=== PATIENT | male | born 1930 | race Caucasian/White ===

== ENCOUNTER 2018-11-16 19:05 | Inpatient (IN) ==
[2018-11-16 20:03] LABS: BASO# 0.02 X1000 (0.0-0.2); BASO% 0.2 % (0.0-0.8); HEMATOCRIT 49.3 % (42.0-52.0); HEMOGLOBIN 15.5 g/dL (14.0-18.0); IMM GRAN# 0.04 X1000 (0.0-0.04); IMM GRAN% 0.4 % (0.0-0.5); LYMPH# 0.46 X1000 (1.2-3.4); MCH 29.8 PG (27-31); MCHC 31.4 g/dL (33-37); MCV 94.8 FL (81-99); MONO# 0.84 X1000 (0.11-0.59); MONO% 9.2 % (1.7-9.3); MPV 10.8 FL (7.4-10.4); NEUT# 7.78 X1000 (1.4-6.5); NEUT% 85.2 % (42.2-75.2); PLT 210 X1000 (130-400); RDW 15.5 % (11.5-14.5); WBC 9.14 X1000 (4.8-10.8)
--- NOTE | 2018-11-16 20:26 | Diag Imaging Result Doc PS360 ---
EXAM: CT HEAD W/O CONTRAST INDICATION: fall, head trauma TECHNIQUE: This exam was performed using automated exposure control, adjustment of mA or kV according to patient size, and/or use of iterative reconstruction technique. COMPARISON: None. FINDINGS: The ventricles are enlarged indicating significant central atrophy versus normal pressure hydrocephalus. There is suggestion of moderate white matter microangiopathy. There are a couple of chronic lacunar infarcts involving the left basal ganglion and one on the right. There is no definite acute infarct given the limited sensitivity of CT versus MRI. There is no discrete intracranial mass, mass effect, or intracranial hemorrhage. There is suggestion of mild anterior scalp edema. The calvaria is intact. IMPRESSION: Chronic appearing intracranial changes as described. No evidence of acute intracranial pathology. Electronically signed by Kamar Yañez 11/16/2018 8:24 PM
--- NOTE | 2018-11-16 20:30 | Diag Imaging Result Doc PS360 ---
EXAM: CHEST-1 VIEW INDICATION: sob TECHNIQUE: One view COMPARISON: 02/25/2011 FINDINGS: There is a patchy infiltrate throughout the left lung suggesting pneumonia, mainly in the left upper lobe. There is also mild interstitial thickening that is stable at both lung bases suggesting mild fibrotic change. There is no discrete pleural fluid collection or pneumothorax. The cardiomediastinal silhouette and central vasculature are grossly unremarkable. IMPRESSION: Patchy infiltrates throughout the left lung suggesting pneumonia. Electronically signed by Kamar Yañez 11/16/2018 8:28 PM
--- NOTE | 2018-11-16 20:31 | Diag Imaging Result Doc PS360 ---
EXAM: PELVIS INDICATION: fall TECHNIQUE: One view COMPARISON: None. FINDINGS: There is extensive degenerative arthropathy at the lower lumbar spine and at both acetabular roofs, more prominent on the right. There is no discrete fracture, dislocation, or significant intrinsic osseous lesion, otherwise. Surrounding soft tissues are grossly unremarkable by plain radiograph. IMPRESSION: Degenerative arthropathy but no evidence of acute osseous abnormality. Electronically signed by Kamar Yañez 11/16/2018 8:29 PM
[2018-11-16 20:59] LABS: ALB/GLOB RATIO 1.5; ALBUMIN 3.8 g/dL (3.5-5.0); CALCIUM 8.4 mg/dL (8.8-10.2); CREATININE 1.6 mg/dL (0.7-1.2); POTASSIUM 4.9 mmol/L (3.5-5.1); TOTAL BILIRUBIN 0.54 mg/dL (0.20-1.00); TOTAL PROTEIN 6.4 g/dL (6.3-8.3)
[2018-11-16] MEDS ORDERED: ZOSYN 3.375 GM in NS 50 ML IV ONE (21:39)
[2018-11-16] MEDS ORDERED: VANCOMYCIN 1 GM/NS 1 GM/250 ML IVPB IV ONE (21:39)
--- NOTE | 2018-11-16 21:47 | PROVIDER DOCUMENTATION ---
This chart was entered by Milly Alvarado Scribe, acting as scribe for Ryan Mcadams MD. HPI-General Adult - General Chief Complaint: Syncope Stated Complaint: fall/ams Time Seen by Provider: 11/16/18 19:11 Source: patient Unable to obtain history due to:: altered (hx of dementia, all info from EMS) - History of Present Illness -Gen Adult Nature of Presenting Problems: pt is a 88 yr old demented male presenting via EMS from SNF, per EMs pt was found in floor beside bed, its believed he fell out of bed. pt hx of dementia and unable to tell what happened. EMS reports pt baseline does talk but upon their arrival pt non verbal but follows commands. upon arrival here pt is now speaking and following commands, remains confused and unable tell events. EMS reported low SPo2 corrected enroute with high flow o2, no o2 in place on exam. Onset/Duration: reports: unsure Review of Systems - Adult - REVIEW OF SYSTEMS - ADULT ROS:: unobtainable per condition (dementia) Constitutional: reports: no symptoms reported Eyes: reports: no symptoms reported Ears, Nose, Mouth & Throat: reports: no symptoms reported Cardiovascular: reports: no symptoms reported Respiratory: reports: no symptoms reported Gastrointestinal: reports: no symptoms reported Genitourinary: reports: no symptoms reported Musculoskeletal: reports: no symptoms reported Integumentary: reports: no symptoms reported Neurological: reports: no symptoms reported Psychiatric: reports: no symptoms reported Endocrine: reports: no symptoms reported Hematologic/Lymphatic: reports: no symptoms reported Allergic/Immunologic: reports: no symptoms reported All Other Systems: Reviewed and Negative Past History - Adult - PAST MEDICAL HISTORY-ADULT Review of Records: reports: Old Records Reviewed, Nursing Assessment Review, Medications Reviewed, Social history reviewed & non-contributory. Major Childhood Illnesses: reports: denies history Cardiovascular: reports: denies history Respiratory: reports: denies history Gastrointestinal: reports: denies history Obstetrical/Gynecological: reports: denies history Genitourinary: reports: denies history Musculoskeletal: reports: denies history Neurological: reports: denies history Endocrine/Immune: reports: denies history Other Conditions: reports: denies history - IMMUNIZATION STATUS Childhood Immunizations: See Nurse Assessment Flu Vaccine: See Nurse Assessment - FAMILY HISTORY Family History: reviewed, not pertinent - SOCIAL HISTORY Living Situation: care facility Physical Exam-General - PHYSICAL EXAM-ADULT Initial Vital Signs Reviewed: Yes - CONSTITUTIONAL General Appearance: appears well, alert, no apparent distress - EYES Eyes: PERRL/EOMI - HEAD, EARS, NOSE, MOUTH & THROAT HENMT: normocephalic/atraumatic, moist mucous membranes, normal ENT inspection - NECK Neck: non-tender, full range of motion, supple, normal inspection - RESPIRATORY Respiratory: chest non-tender, lungs clear, normal breath sounds - CARDIOVASCULAR Cardiovascular: normal peripheral pulses, regular rate, rhythm, no edema - GASTROINTESTINAL (ABDOMEN) Abdominal Exam: normal bowel sounds, non tender, soft - LYMPHATIC Lymphatic: no adenopathy - MUSCULOSKELETAL Back Exam: normal inspection, no CVA tenderness, no vertebral tenderness Extremity: normal range of motion, non-tender, normal gait, normal inspection - SKIN Integumentary: normal color, normal turgor, warm/dry - NEUROLOGIC Neurologic: grossly normal, no motor/sensory deficits - PSYCHIATRIC Psych/Mental Status: other (demented) Progress - PLAN OF CARE/RESULTS Progress/Plan/Lab Results: Vital Signs - 8 hr 11/16/18 19:56 Temperature 98.7 F Pulse Rate 97 H Respiratory Rate 30 H Blood Pressure 112/70 O2 Sat by Pulse Oximetry 93 L Laboratory Results - last 24 hr 11/16/18 19:54 WBC 9.14 RBC 5.20 Hgb 15.5 Hct 49.3 MCV 94.8 MCH 29.8 MCHC 31.4 L RDW Std Deviation 15.5 H Plt Count 210 MPV 10.8 H Immature Gran % (Auto) 0.4 Neut % (Auto) 85.2 H Lymph % (Auto) 5.0 L Roane % (Auto) 9.2 Eos % (Auto) 0.0 Baso % (Auto) 0.2 Immature Gran # (Auto) 0.04 Neut # (Auto) 7.78 H Lymph # (Auto) 0.46 L Roane # (Auto) 0.84 H Eos # (Auto) 0.00 Baso # (Auto) 0.02 Orders Category Date Time Status CT HEAD W/O CONTRAST [CT] Stat Exams 11/16/18 19:18 Taken PELVIS [RAD] Stat Exams 11/16/18 19:20 Taken cxr [CHEST-1 VIEW] [RAD] Stat Exams 11/16/18 19:19 Taken CBC WITH ELECTRONIC DIFF [HEME] Stat Lab 11/16/18 19:54 Completed COMPREHENSIVE METABOLIC PANEL [CHEM] Stat Lab 11/16/18 19:54 Received PRO B-NATRIURETIC PEPTIDE Stat Lab 11/16/18 19:54 Received TROPONIN T Stat Lab 11/16/18 19:54 Received UA [URINALYSIS] [URINALYSIS] Stat Lab 11/16/18 19:17 Uncollected EKG [EKG] Stat Ther 11/16/18 19:20 Ordered Result Diagrams: 11/16/18 19:54 11/16/18 19:54 - EKG 1 Time of EKG reading by physician:: 19:40 EKG Read and Signed by:: Ryan Mcadams EKG Interpretation (*Must complete 3 of following elements*): Abnormal (t wave abnormality-consider inferior ischemia) Rate: 89 Rhythm: nsr Temple: normal QRS: normal NC Interval: normal Departure - Departure Date of Disposition Decision: 11/16/18 Time of Disposition Decision: 21:46 DIAGNOSIS: Pneumonia Qualifiers: Pneumonia type: due to unspecified organism Laterality: unspecified laterality Lung location: unspecified part of lung Qualified Code(s): J18.9 - Pneumonia, unspecified organism Disposition: ADMITTED INPATIENT 09 Certified Medical Emergency: Emergent Condition: Stable Referrals and Follow-Ups: Jesus Eric MD [Primary Care Provider] - - Critical Care Note This patient required my direct & personal management of CC.: No Attestation - Physician/ BLANCHE Attestation Patient care was provided by Advanced Practice Provider:: No The physician spent face to face time with patient:: Yes Advanced Practice Provider documentation review:: Supervising physician onsite and consulted in the evaluation and care of this patient. The physician did have a face to face encounter with the patient. This chart was documented by the indicated scribe, (Milly Alvarado Scribe) and accurately reflects the services I performed and decisions made by me, Ryan Mcadams MD, as attested by the provider's signature.
[2018-11-17] MEDS ORDERED: ZOFRAN IV PRN (00:38)
[2018-11-17] MEDS ORDERED: VANCOMYCIN IV PER PHARMACY MISC SCH (00:38)
[2018-11-17] MEDS ORDERED: TYLENOL PO PRN (00:38)
[2018-11-17] MEDS ORDERED: D5 1/2 NS 1,000 ML IV SCH (00:38)
[2018-11-17] MEDS ORDERED: HALDOL IM ONE (01:06)
[2018-11-17] MEDS: LOVENOX SUBQ SCH (01:47)
[2018-11-17] MEDS ORDERED: VANCOMYCIN 800 MG in NS 250 ML IV ONE (03:00)
--- NOTE | 2018-11-17 03:02 | HISTORY AND PHYSICAL ---
PRIMARY CARE PHYSICIAN: Fernando Eric MD. REASON FOR ADMISSION: Weakness and hypoxia today. HISTORY OF PRESENT ILLNESS: Mr. Dean Mancera is an 88-year-old man with past medical history of hypertension, prior CVA, and Parkinson's disease. Two days ago, he was noted to have a fever where he resides at an assisted living facility. Because there is an outbreak of some viral respiratory illness, he was quarantined with his . They thought maybe she had the flu. They also noticed at that time that he had a chest rattle according to his son yesterday. They were thinking of bringing him to his physician's office when they noticed that his fever defervesced and he looked to be doing well. This evening, the patient told his that he was very weak and wanted to go to bed. During the course of his sleeping in bed, he rolled out of bed and landed on the side of the bed and was found to be very weak and drowsy. The contacted his son who told her to call EMS and they came by and noticed his O2 saturation was 50% on room air. He was put on nonrebreather and he is now alert, awake and oriented to person and place. Oxygen saturation is in the mid 90s. The patient denies any cough or shortness of breath oddly enough. He denies any leg swelling, PND, orthopnea. No fever or chills today. No GI or complaints, although according to his son, he does have moments when he has urinary incontinence secondary to urge incontinence. REVIEW OF SYSTEMS: A 12-system review was done. Positive findings as per HPI. ALLERGIES: No known allergies. MEDICATIONS: List not available. SURGICAL HISTORY: None. FAMILY HISTORY: Notable for CVA and COPD. PAST MEDICAL HISTORY: As above. SOCIAL HISTORY: He stopped smoking 15 years ago. He lives in an assisted care living facility with his . LABORATORY DATA: White count 9000, hemoglobin 15.9, platelets 210 with 85% neutrophils. Sodium 152, BUN 40, creatinine 1.6 (nothing to compare with), glucose 131. AST 54, ALT 27, alkaline phosphatase 71. Troponin 0.073. ProBNP 13,000. Chest x-ray shows patchy infiltrates in the left lung. Head CT: Chronic appearing intracranial changes; no acute changes. Hip and pelvic x-rays: Show osteoarthritis. PHYSICAL EXAMINATION: VITAL SIGNS: Blood pressure 112/70, heart rate 97, respiratory rate 30, temperature 98.7 degrees. He is on 100% nonrebreather; oxygen saturation is 93%. He is in slight respiratory distress with use of accessory muscles. GENERAL: He is slightly anxious, oriented to person and place. HEENT: Head is normocephalic, atraumatic. Eyes PERRL. EOMI. He is anicteric, not pale. ENT: Oropharynx exam shows dry oral mucosa. No oropharyngeal exudates. No central cyanosis. NECK: Supple. No JVD, carotid bruits, or thyromegaly. SKIN: He has decreased skin turgor. CHEST: He has bilateral diffuse, coarse crackles in both lungs with expiratory wheezes more on the left than the right. Decreased air entry in both lung martinez. CARDIOVASCULAR: First and second heart sounds heard. No gallops, murmurs or rubs. Rhythm is regular. ABDOMEN: Full, soft, no tenderness. Bowel sounds normal. RECTAL EXAM: Deferred at this time. EXTREMITIES: The patient has old ecchymotic changes on the dorsum of his left upper extremity. Good pulses distally, symmetrical, regular. No clubbing, cyanosis or edema. NEUROLOGIC: No gross focal deficits appreciated. No tremors. SKIN: Intact. No breakdown or erythema. Positive findings as noted above. MUSCULOSKELETAL: Grossly normal. No hypertonicity or cogwheel rigidity. ASSESSMENT: 1. Acute respiratory failure secondary to pneumonia. 2. Pneumonia, bilateral, probably related to aspiration. 3. Dehydration probably secondary to poor oral intake. 4. Hypernatremia secondary to dehydration. 5. Acute kidney injury secondary to dehydration. 6. History of hypertension. 7. Parkinson's disease. PLAN: The patient will be admitted and hydrated. It is possible the patient may have some mild metabolic encephalopathy from hypernatremia and dehydration. We will give him a total of 2 liters of fluid and then he will be reassessed. The patient will be covered for nosocomial pathogens with vancomycin and Zosyn, with the latter for possible aspiration pathogens. DuoNebs will also be instituted. His current home medications have not been reconciled and this needs to be done. I have taken the liberty of ordering a flu screen also. This needs to be followed. Otherwise, the patient's oxygen supplementation will be continued, hopefully titrated downwards to nasal cannula; or if patient does not improve, consider BiPAP. Also consider doing an ABG tomorrow in a.m. to document improvement and do a chest film later in the day. cc: MD Fernando Estrada MD
[2018-11-17] MEDS: DUONEB (A & A) INH SCH ×6 (03:50→23:09)
[2018-11-17 04:48] LABS: BASO# 0.02 X1000 (0.0-0.2); BASO% 0.2 % (0.0-0.8); HEMATOCRIT 42.9 % (42.0-52.0); HEMOGLOBIN 13.6 g/dL (14.0-18.0); IMM GRAN# 0.08 X1000 (0.0-0.04); IMM GRAN% 0.9 % (0.0-0.5); LYMPH# 1.15 X1000 (1.2-3.4); LYMPH% 13.6 % (20.5-51.1); MCH 30.2 PG (27-31); MCHC 31.7 g/dL (33-37); MCV 95.3 FL (81-99); MONO# 0.71 X1000 (0.11-0.59); MONO% 8.4 % (1.7-9.3); MPV 10.7 FL (7.4-10.4); NEUT# 6.51 X1000 (1.4-6.5); NEUT% 76.9 % (42.2-75.2); PLT 164 X1000 (130-400); RDW 15.4 % (11.5-14.5); WBC 8.47 X1000 (4.8-10.8)
[2018-11-17 05:06] LABS: CALCIUM 8.1 mg/dL (8.8-10.2); CREATININE 1.4 mg/dL (0.7-1.2); POTASSIUM 4.2 mmol/L (3.5-5.1)
[2018-11-17 05:44] LABS: ALLEN TEST YES; BE 1.7 mmoll (-3.0-3.0); BLOOD TYPE ARTERIAL; HCO3-(ACT) 26.2 mmoll (20.0-26.0); O2(CT) 19.2 mL/dL (15.0-23.0); O2HB 96.9 % (95.0-99.0); PO2(98.6) 137 mmHg (60-100); SAMPLE BLOOD; SAO2 98.6 % (95.0-100.0); THB 13.9 g/dL (11.5-17.4); pH(98.6) 7.34 (7.35-7.45)
[2018-11-17 05:49] LABS: MODALITY NRB; PCO2(98.6) 53 mmHg (35-45)
--- NOTE | 2018-11-17 07:21 | Diag Imaging Result Doc PS360 ---
EXAM: CHEST-PORTABLE INDICATION: Crackles bilateral full lung martinez TECHNIQUE: One view COMPARISON: 11/16/2018 FINDINGS: Infiltrates throughout the left lung are essentially stable except for perhaps slight worsening at the left lung base. There has been interval development of an infiltrate at the right lung base as well. No other new consolidations are identified. Cardiac silhouette is stable. IMPRESSION: Interval worsening as described. Electronically signed by Kamar Yañez 11/17/2018 7:18 AM
--- NOTE | 2018-11-17 07:48 | EKG Report ---
Test Performed on : 11/16/2018 7:40:58 PM Test Reason : ams Blood Pressure : / mmHG Vent. Rate : 089 BPM Atrial Rate : 089 BPM P-R Int : 138 ms QRS Dur : 114 ms QT Int : 362 ms P-R-T Axes : 069 079 -57 degrees QTc Int : 440 ms Normal sinus rhythm. T wave abnormality, consider inferior ischemia Abnormal ECG When compared with ECG of 25-FEB-2011 06:15, QRS duration has increased T wave inversion now evident in Anterior leads Unconfirmed Result
[2018-11-17] MEDS ORDERED: LASIX IV ONE (08:09)
[2018-11-17 09:54] LABS: ALLEN TEST YES; BE 1.8 mmoll (-3.0-3.0); BLOOD TYPE ARTERIAL; HCO3-(ACT) 26.3 mmoll (20.0-26.0); METHB 0.9 % (0.0-1.5); O2(CT) 19.3 mL/dL (15.0-23.0); O2HB 97.5 % (95.0-99.0); PO2(98.6) 180 mmHg (60-100); SAMPLE BLOOD; SAO2 99.7 % (95.0-100.0); THB 13.8 g/dL (11.5-17.4); pH(98.6) 7.33 (7.35-7.45)
[2018-11-17 09:55] LABS: MODALITY NRB
[2018-11-17 09:57] LABS: PCO2(98.6) 55 mmHg (35-45)
[2018-11-17] MEDS: ZOSYN 3.375 GM in NS 50 ML IV SCH ×2 (10:25→16:00)
[2018-11-17] MEDS: TAMIFLU PO SCH ×2 (10:26→20:40)
--- NOTE | 2018-11-17 15:22 | Diag Imaging Result Doc PS360 ---
EXAM: CHEST-1 VIEW 11/17/2018 HISTORY: pna TECHNIQUE: AP portable at 1446 COMMENT: Compared to 11/17/2018 at 0646 the alveolar opacities in both lung bases have improved. The inspiration is also better. IMPRESSION: Improved pulmonary edema and/or pneumonia. Electronically signed by Naresh Valdivia 11/17/2018 3:19 PM
--- NOTE | 2018-11-17 20:14 | CONSULTATION ---
DATE OF CONSULTATION: 11/17/2018 CHIEF COMPLAINT: Difficult urinary catheter placement. HISTORY OF PRESENT ILLNESS: Mr. Mancera is an 88-year-old with hypertension, prior CVA and Parkinson disease who developed a respiratory infection that appeared initially to be viral and subsequent developed weakness and hypoxia. Ultimately, bringing him to the emergency room by EMS when he was found to be very drowsy and difficult to arouse. On evaluation in the emergency room, he had a oxygen saturation of 50% with concern for pneumonia. The patient also had a significantly elevated proBNP at 13,000 with ABG showing pH of 7.3 with a carbon dioxide of 55 and oxygen saturation 180. The patient was admitted for vigorous diuresis and treatment of possible pneumonia. Nursing attempted to place catheter and had difficulty, and subsequently Urology was consulted for further assistance with catheter placement. PAST MEDICAL HISTORY: 1. Hypertension. 2. Prior CVA. 3. Parkinson disease. ALLERGIES: Penicillin. HOME MEDICATIONS: None listed. SURGICAL HISTORY: None. FAMILY HISTORY: Denies family history of malignancy. SOCIAL HISTORY: Has a 15 pack-year smoking history and lives in assisted care facility with his . PHYSICAL EXAMINATION: Vital signs: Temperature 97.5 degrees, heart rate 75, oxygen saturation 100% on non-rebreather, blood pressure 109/45. General: The patient is alert but is minimally verbal on exam today. He does have some increased work of breathing and appears slightly anxious. HEENT: Normocephalic, atraumatic. Pupils equal, round and reactive to light. Mucous membranes moist. Good dentition. Neck: Trachea midline without obvious deformity. Chest: Good respiratory effort with decreased lung sounds bilaterally in the lower lung martinez with subtle wheezing. Cardiovascular: S1, S2 heart sounds with no obvious murmurs, rubs, or gallops. Abdomen: Soft, nontender, nondistended. Genitourinary: Normal phallus with slightly phimotic foreskin with normal meatus. Bilateral testicles without masses or nodularity. Neurologic: Gross motor and sensory intact, no obvious tremor. LABS: White blood cell count 8.4, hemoglobin 13.6, hematocrit 42.9, platelets 164,000. Sodium 149, potassium 4.2, chloride 110, bicarbonate 30, BUN 38, creatinine 1.4, glucose 118, calcium 8.1. ProBNP 13,262. ASSESSMENT AND PLAN: Mr. Mancera is an 88-year-old with hypertension, prior cerebrovascular accident and Parkinson disease. The patient is minimally talkative on exam today and cannot respond whether he has seen a urologist previously. Nursing had attempted to place catheter with 16-Bolivian and met resistance. Urology is consulted for further recommendations. I evaluated the patient and attempted to place a 14-Bolivian silicone catheter, which I was able to slide easily into the bladder with drainage of clear yellow urine. This was inflated with 10 mL of sterile water and placed to a StatLock on his right lower extremity. The patient will need this for vigorous diuresis. Once this is completed, catheter can likely be removed. There was not significant difficulty with placement, and likely a smaller catheter is all that is required. I will continue to monitor. Please call with questions or concerns. cc: MD Fernando Hector MD MTDD
[2018-11-18] MEDS: D5 1/2 NS 1,000 ML IV SCH ×2 (00:01→19:58)
[2018-11-18] MEDS: LOVENOX SUBQ SCH (00:02)
[2018-11-18] MEDS: ZOSYN 3.375 GM in NS 50 ML IV SCH ×4 (00:02→19:59)
[2018-11-18 04:45] LABS: URINE SOURCE CATH
[2018-11-18 04:52] LABS: BILIRUBIN URINE NEGATIVE (NEGATIVE); BLOOD URINE MODERATE (NEGATIVE); COLOR YELLOW; GLUCOSE URINE NEGATIVE (NEGATIVE); KETONE URINE NEGATIVE (NEGATIVE); LEUKOCYTES URINE NEGATIVE (NEGATIVE); NITRITE URINE NEGATIVE (NEGATIVE); PH URINE 5.5; PROTEIN URINE TRACE mg/dL (NEGATIVE); SP GRAVITY URINE 1.017; TURBIDITY URINE CLEAR (CLEAR); UROBILINOGEN URINE 2 mg/dL (NORMAL)
[2018-11-18 04:53] LABS: UR EPITHELIAL CELLS <10 /HPF (<10); URINE BACTERIA NEGATIVE /HPF; URINE RBC TNTC /HPF (<10); URINE WBC <10 /HPF (<10)
[2018-11-18 05:45] LABS: ALLEN TEST YES; BE 9.1 mmoll (-3.0-3.0); BLOOD TYPE ARTERIAL; O2HB 97.6 % (95.0-99.0); PO2(98.6) 224 mmHg (60-100); SAMPLE BLOOD; SAO2 99.2 % (95.0-100.0); THB 13.5 g/dL (11.5-17.4); pH(98.6) 7.39 (7.35-7.45)
[2018-11-18 05:46] LABS: MODALITY NRB
[2018-11-18 05:48] LABS: PCO2(98.6) 60 mmHg (35-45)
--- NOTE | 2018-11-18 07:29 | Diag Imaging Result Doc PS360 ---
EXAM: CHEST-1 VIEW INDICATION: SOB TECHNIQUE: One view COMPARISON: 11/17/2018 FINDINGS: Bilateral consolidations, most prominent at the bases are again noted. Consolidation at the left lung base appears slightly more prominent. However, this may be due to slight differences in rotation. On the current study, the patient is slightly rotated toward the right. Otherwise, no new consolidation is identified. Cardiac silhouette is stable. IMPRESSION: Slight increase in density of consolidation on the left, probably positional. Electronically signed by Kamar Yañez 11/18/2018 7:27 AM
[2018-11-18] MEDS: DUONEB (A & A) INH SCH ×5 (07:35→22:45)
[2018-11-18 07:39] LABS: BASO# 0.03 X1000 (0.0-0.2); BASO% 0.3 % (0.0-0.8); EOS# 0.02 X1000 (0.0-0.7); EOS% 0.2 % (0.0-10.0); HEMATOCRIT 43.6 % (42.0-52.0); HEMOGLOBIN 13.9 g/dL (14.0-18.0); IMM GRAN# 0.08 X1000 (0.0-0.04); IMM GRAN% 0.8 % (0.0-0.5); LYMPH# 0.69 X1000 (1.2-3.4); LYMPH% 7.3 % (20.5-51.1); MCH 30.5 PG (27-31); MCHC 31.9 g/dL (33-37); MCV 95.8 FL (81-99); MONO# 0.92 X1000 (0.11-0.59); MONO% 9.7 % (1.7-9.3); MPV 10.9 FL (7.4-10.4); NEUT# 7.77 X1000 (1.4-6.5); NEUT% 81.7 % (42.2-75.2); PLT 168 X1000 (130-400); RBC 4.55 XMIL (4.7-6.1); WBC 9.51 X1000 (4.8-10.8)
[2018-11-18 08:00] LABS: CALCIUM 8.4 mg/dL (8.8-10.2); CREATININE 1.3 mg/dL (0.7-1.2); POTASSIUM 3.8 mmol/L (3.5-5.1)
[2018-11-18] MEDS: TAMIFLU PO SCH ×2 (10:07→20:00)
[2018-11-18] MEDS ORDERED: LASIX IV ONE (11:25)
--- NOTE | 2018-11-18 22:01 | PROGRESS NOTE ---
DATE: 11/18/2018 SUBJECTIVE: An 88-year-old white male admitted to the hospital yesterday with influenza A, followed by pneumonitis, shortness of breath and dehydration. The patient is in assisted living at [facility]. Apparently they had some outbreak of influenza. The patient was very sick when he came in. Slowly weaned off oxygen. Interval history was reviewed. Unable to do Morris catheter. Dr. Hope was consulted. The patient is more awake, wants to eat. Son who is the caregiver at bedside. PAST MEDICAL HISTORY: Reviewed. PAST SURGICAL HISTORY: Reviewed. MEDICATIONS: Reviewed. ALLERGIES: Penicillin. OBJECTIVE: On examination, the patient is awake, responding well, on oxygen 4 L. Temperature is 98 degrees, pulse is 60, blood pressure is stable. HEENT exam within normal limits. Neck is supple. Chest: He has bilateral rhonchi. Heart sounds are distant. Belly is soft, nontender. Good bowel sounds. Morris was placed. LABORATORY DATA: White cell count 9.5, hematocrit 43, platelets 168,000. ABG pH is 7.39, pCO2 is 60, pO2 is 24. SMA 7: Sodium 149, potassium 3.8, BUN 32, creatinine 1.3. ProBNP 13,000. Influenza A positive. Blood cultures 1 out of 2: Positive coagulase-negative staphylococcus. DIAGNOSTIC DATA: Telemetry strip: Sinus. Chest x-ray: Consolidation at the bases. ASSESSMENT AND PLAN: 1. Altered mental status due to metabolic encephalopathy, with underlying dementia and Parkinson disease. 2. Influenza A infection. Continue on Tamiflu 75 mg p.o. b.i.d. for 5 days. 3. Hypercarbia. Decrease oxygen to 50%. 4. Postinfluenza pneumonitis. Continue on intravenous vancomycin and Zosyn. 5. Dehydration. Very gentle hydration, 50 mL/h and intravenous Lasix one time. 6. Deep venous thrombosis prophylaxis. Lovenox. 7. Advance the diet and slowly reconcile home medications. Discussed the plan of care with family at bedside. Will follow up. Level of documentation is 35 minutes. cc: Fernando Eric MD
[2018-11-19] MEDS: LOVENOX SUBQ SCH (00:30)
[2018-11-19] MEDS: ZOSYN 3.375 GM in NS 50 ML IV SCH ×3 (03:18→21:23)
[2018-11-19] MEDS: VANCOMYCIN 1,350 MG in NS 250 ML IV SCH (03:52)
--- NOTE | 2018-11-19 07:27 | Diag Imaging Result Doc PS360 ---
CHEST-1 VIEW - 11/19/2018 INDICATION: SOB COMPARISON: 11/18/2018 FINDINGS: Stable extensive reticulonodular infiltrates diffusely and bilaterally. Heart size remains top normal. No pneumothorax or pleural effusion. Stable granuloma in the left lung base. IMPRESSION: No change from prior. Electronically signed by Chuy Mae 11/19/2018 7:24 AM
[2018-11-19 08:02] LABS: CALCIUM 7.7 mg/dL (8.8-10.2); CREATININE 1.2 mg/dL (0.7-1.2); POTASSIUM 3.4 mmol/L (3.5-5.1)
[2018-11-19] MEDS: DUONEB (A & A) INH SCH ×5 (08:08→23:00)
--- NOTE | 2018-11-19 08:22 | ECHO REPORT ---
ORDER DATE: 11/17/2018 INTERPRETING PHYSICIAN: Dr. Love CLINICAL INDICATIONS: Echocardiogram requested for evaluation of CHF. SUMMARY M-MODE MEASUREMENTS: There were no parasternal views available. Therefore, there are no M- mode measurements. SUMMARY OF 2-DIMENSIONAL IMAGIN. Only subcostal views are available. 2. There is a umsdk-qh-padsgo size pericardial effusion. 3. The right ventricle appears to be enlarged and appears to be globally impaired. The ejection fraction of the right ventricle appears to be in the order of 30%. The left ventricular ejection fraction on the other hand appears to be better, however, accurate estimation is precluded because the only available view is a subcostal view. 4. No other significant finding can be mentioned here. The aortic valve probably was normal. SUMMARY: 1. This is an extremely limited study. 2. This shows a lcmqi-zo-ctqsabon size pericardial effusion with impairment of the right ventricle. 3. The left ventricle shows normal function. RECOMMENDATION: The patient is to have either a coronary CTA or cardiac CTA to evaluate the cardiac structures or a transesophageal echocardiogram. cc: MD Fernando Connor MD
[2018-11-19] MEDS ORDERED: CALCIUM GLUCONATE 1 GM in NS 50 ML IV ONE (08:34)
[2018-11-19] MEDS ORDERED: DUONEB (A & A) INH PRN (09:00)
[2018-11-19] MEDS ORDERED: PATIENT'S OWN MED PO SCH (09:00)
[2018-11-19] MEDS ORDERED: LODOSYN PO SCH (09:00)
[2018-11-19] MEDS: VITAMIN B-12 PO SCH (09:57)
[2018-11-19] MEDS: THERA M PLUS PO SCH (09:57)
[2018-11-19] MEDS: CLARITIN PO SCH (09:58)
[2018-11-19] MEDS: TAMIFLU PO SCH ×2 (09:58→21:23)
[2018-11-19] MEDS: VITAMIN D PO SCH (09:58)
[2018-11-19] MEDS: POTASSIUM CHLORIDE 20 MEQ/SWI 20 MEQ/100 ML IVPB IV SCH ×2 (11:24→14:40)
[2018-11-19] MEDS: CLINIMIX E 4.25%-5% SOLUTION 1,000 ML IV SCH (14:40)
[2018-11-19] MEDS: PATIENT'S OWN MED PO SCH (18:19)
--- NOTE | 2018-11-19 18:31 | PROGRESS NOTE ---
DATE: 11/19/2018 SUBJECT: The patient is still confused, last night had to put restraints, pull the Morris, IV out and he has also some gurgling transmitting sounds in both lungs. Confused. EXAM: Temperature is 97.8 degrees, pulse 103, blood pressure is 144/63 on 4 L on 100%.HEENT: Within normal limits. Bilateral rhonchi. Heart: Sounds are distant. Belly: Soft, nontender. Restraint. LABS: SMA 7 sodium 148, potassium 3.4, BUN 27, creatinine 1.2. ASSESSMENT AND PLAN: 1. Influenza A with aspiration pneumonia. Plan is oxygen and IV vancomycin and Zosyn. 2. Continue Tamiflu 75 p.o. b.i.d. 3. Parkinson disease. Continue on carbidopa once daily. 4. Deep vein thrombosis prophylaxis with Lovenox. 5. Dehydration, stable . 6. Hypokalemia, hypocalcemia replacement. 7. Change the nutrition with IV Clinimix. 8. Continue bronchodilators with suctioning and will follow up labs in the morning. LEVEL OF DOCUMENTATION: 25 minutes. cc: Fernando Eric MD
[2018-11-20] MEDS: LOVENOX SUBQ SCH (01:32)
[2018-11-20] MEDS: PATIENT'S OWN MED PO SCH ×3 (01:41→17:29)
[2018-11-20] MEDS: ZOSYN 3.375 GM in NS 50 ML IV SCH ×3 (04:41→19:49)
[2018-11-20 07:07] LABS: AGAP 5; BUN 25 mg/dL (8-22); CALCIUM 8.7 mg/dL (8.8-10.2); CHLORIDE 101 mmol/L (98-107); COSMO 289; CREATININE 0.9 mg/dL (0.7-1.2); ESTIMATED GFR > 60; GLUCOSE 95 mg/dL (70-104); POTASSIUM 3.9 mmol/L (3.5-5.1); SODIUM 143 mmol/L (136-145); TCO2 37 mmol/L (25-35)
--- NOTE | 2018-11-20 07:39 | Diag Imaging Result Doc PS360 ---
CHEST-1 VIEW - 11/20/2018 INDICATION: SOB COMPARISON: 11/19/2018 FINDINGS: Stable extensive coarse interstitial infiltrates bilaterally. Heart size remains top normal. No pneumothorax or pleural effusion. Stable granuloma in the left lung base. IMPRESSION: No change from prior. Electronically signed by Chuy Mae 11/20/2018 7:37 AM
[2018-11-20] MEDS: DUONEB (A & A) INH SCH ×5 (08:08→22:37)
[2018-11-20] MEDS: TAMIFLU PO SCH ×2 (08:44→20:00)
[2018-11-20] MEDS: CLARITIN PO SCH (08:45)
[2018-11-20] MEDS: THERA M PLUS PO SCH (08:45)
[2018-11-20] MEDS: VITAMIN B-12 PO SCH (08:45)
[2018-11-20] MEDS: VITAMIN D PO SCH (08:45)
--- NOTE | 2018-11-20 12:52 | PROGRESS NOTE ---
DATE: 11/20/2018 Mr. Mancera is very short of breath. His is on Clinimix IV. He has influenza A-positive as well as aspiration pneumonia, and he is getting Tamiflu as well as IV vancomycin and Zosyn. He continues to have bilateral pulmonary congestion which could be secondary from aspiration. We will try to put him on Glucerna or Ensure twice a day. His oral intake is very, very poor partly and overall prognosis seems to be guarded at the present time. -2 cc: MD Fernando Jefferson MD
[2018-11-20] MEDS: CLINIMIX E 4.25%-5% SOLUTION 1,000 ML IV SCH (17:27)
[2018-11-21] MEDS: PATIENT'S OWN MED PO SCH ×3 (01:42→17:34)
[2018-11-21] MEDS: LOVENOX SUBQ SCH (01:42)
[2018-11-21] MEDS: ZOSYN 3.375 GM in NS 50 ML IV SCH ×3 (03:17→20:09)
[2018-11-21] MEDS: VANCOMYCIN 1,350 MG in NS 250 ML IV SCH (03:22)
[2018-11-21 07:14] LABS: AGAP 6; BUN 24 mg/dL (8-22); CALCIUM 8.6 mg/dL (8.8-10.2); CHLORIDE 103 mmol/L (98-107); COSMO 291; CREATININE 0.8 mg/dL (0.7-1.2); ESTIMATED GFR > 60; GLUCOSE 104 mg/dL (70-104); POTASSIUM 4.3 mmol/L (3.5-5.1); SODIUM 144 mmol/L (136-145); TCO2 35 mmol/L (25-35)
[2018-11-21] MEDS: DUONEB (A & A) INH SCH ×5 (07:41→23:11)
[2018-11-21] MEDS: TAMIFLU PO SCH ×2 (09:54→20:31)
[2018-11-21] MEDS: CLARITIN PO SCH (09:55)
[2018-11-21] MEDS: VITAMIN D PO SCH (09:55)
[2018-11-21] MEDS: VITAMIN B-12 PO SCH (09:55)
[2018-11-21] MEDS: THERA M PLUS PO SCH (09:55)
[2018-11-21] MEDS: CLINIMIX E 4.25%-5% SOLUTION 1,000 ML IV SCH (10:01)
[2018-11-21] MEDS ORDERED: VASOTEC IV ONE (10:51)
[2018-11-21 10:59] LABS: ALLEN TEST YES; BE 8.6 mmoll (-3.0-3.0); BLOOD TYPE ARTERIAL; HCO3-(ACT) 31.6 mmoll (20.0-26.0); METHB 0.7 % (0.0-1.5); O2(CT) 20.1 mL/dL (15.0-23.0); O2HB 96.8 % (95.0-99.0); PO2(98.6) 175 mmHg (60-100); SAMPLE BLOOD; SAO2 99.1 % (95.0-100.0); THB 14.5 g/dL (11.5-17.4); pH(98.6) 7.36 (7.35-7.45)
[2018-11-21 11:01] LABS: MODALITY NRB
[2018-11-21 11:03] LABS: PCO2(98.6) 65 mmHg (35-45)
[2018-11-21] MEDS ORDERED: VASOTEC IV PRN (11:29)
[2018-11-21 11:55] LABS: BASO# 0.04 X1000 (0.0-0.2); BASO% 0.4 % (0.0-0.8); EOS# 0.22 X1000 (0.0-0.7); EOS% 2.1 % (0.0-10.0); HEMATOCRIT 46.4 % (42.0-52.0); HEMOGLOBIN 14.5 g/dL (14.0-18.0); IMM GRAN# 0.14 X1000 (0.0-0.04); IMM GRAN% 1.3 % (0.0-0.5); LYMPH# 0.63 X1000 (1.2-3.4); MCH 29.7 PG (27-31); MCHC 31.3 g/dL (33-37); MCV 94.9 FL (81-99); MONO# 0.99 X1000 (0.11-0.59); MONO% 9.4 % (1.7-9.3); NEUT% 80.8 % (42.2-75.2); PLT 281 X1000 (130-400); RBC 4.89 XMIL (4.7-6.1); RDW 14.5 % (11.5-14.5); WBC 10.52 X1000 (4.8-10.8)
[2018-11-21 12:14] LABS: AGAP 7; BUN 23 mg/dL (8-22); CALCIUM 9.1 mg/dL (8.8-10.2); CHLORIDE 100 mmol/L (98-107); COSMO 285; CREATININE 0.8 mg/dL (0.7-1.2); ESTIMATED GFR > 60; GLUCOSE 104 mg/dL (70-104); POTASSIUM 4.8 mmol/L (3.5-5.1); SODIUM 141 mmol/L (136-145); TCO2 34 mmol/L (25-35)
--- NOTE | 2018-11-21 12:23 | PROGRESS NOTE ---
DATE: 11/21/2018 SUBJECTIVE: He was doing fairly well this morning. However, suddenly he collapsed and stopped responding. He has persistent aspiration and he has recurrent pneumonia. His general condition is poor. He was actually admitted with diagnosis of influenza A plus aspiration pneumonia. He has been on IV Zosyn as well as vancomycin and Tamiflu. At present, his blood pressure is elevated. ABGs revealed significant elevation in pCO2, indicating the presence of respiratory failure. We have started the BiPAP. Will give IV Vasotec every 6 hours p.r.n. Overall prognosis appears to be poor. If we have a bed, will transfer him to ICU. -9 cc: MD Fernando Jefferson MD
[2018-11-21] MEDS ORDERED: LASIX IV SCH (16:15)
[2018-11-21] MEDS ORDERED: MORPHINE IV PRN (16:16)
[2018-11-21] MEDS: MORPHINE IV PRN ×2 (20:09→21:57)
[2018-11-22] MEDS: LOVENOX SUBQ SCH (00:08)
[2018-11-22] MEDS: MORPHINE IV PRN ×9 (00:17→23:03)
[2018-11-22] MEDS: PATIENT'S OWN MED PO SCH (02:02)
[2018-11-22] MEDS: ZOSYN 3.375 GM in NS 50 ML IV SCH (04:18)
--- NOTE | 2018-11-22 07:33 | Diag Imaging Result Doc PS360 ---
CHEST-PORTABLE - 11/22/2018 INDICATION: pneumonia follow up COMPARISON: 11/20/2018 FINDINGS: Stable extensive bilateral interstitial infiltrates. Heart size is normal. No pneumothorax or pleural effusion. IMPRESSION: No change from prior. Electronically signed by Chuy Mae 11/22/2018 7:30 AM
[2018-11-22] MEDS: DUONEB (A & A) INH SCH (07:46)
--- NOTE | 2018-11-22 08:58 | EKG Report ---
Test Performed on : 11/21/2018 10:46:45 AM Test Reason : NO EKG ORDER FOR MUSE Blood Pressure : / mmHG Vent. Rate : 068 BPM Atrial Rate : 068 BPM P-R Int : 128 ms QRS Dur : 114 ms QT Int : 434 ms P-R-T Axes : 055 071 -62 degrees QTc Int : 461 ms Normal sinus rhythm. Incomplete right bundle branch block ST & T wave abnormality, consider inferior ischemia ST & T wave abnormality, consider anterolateral ischemia Prolonged QT Abnormal ECG When compared with ECG of 16-NOV-2018 19:40, (Unconfirmed) Inverted T waves have replaced nonspecific T wave abnormality in Lateral leads Unconfirmed Result
[2018-11-22] MEDS ORDERED: TRANSDERM-SCOP TD SCH (09:00)
[2018-11-22] MEDS: ATIVAN IV PRN ×5 (10:26→23:03)
[2018-11-22] MEDS: NS 1,000 ML IV SCH (13:24)
--- NOTE | 2018-11-22 22:01 | PROGRESS NOTE ---
DATE: 11/22/2018 SUBJECTIVE: Events noted over the weekend. He continues to deteriorate, combative, agitated on BiPAP machine. The son was at bedside. Follow up chest x-ray left lower lobe infiltrate, and pretty much family decided comfort care. Stop Clinimix and antibiotics. He is awake and less combative on BiPAP machine. OBJECTIVE: Vital signs: Temperature is 97 degrees, pulse is 73, blood pressure 124/74. HEENT: On BiPAP machine. Some rhonchi. Heart: Sounds are distant. Abdomen: Belly is soft, nontender. Genitourinary: Morris was discontinued. He is in diapers. INVESTIGATIONS: CBC: White cell count 10, hematocrit 46, platelets 281,000. ABG: pH is 7.36, pCO2 65, pO2 175 and he is on BiPAP machine. SMA 7 was normal. Cardiac enzymes were negative. Chest x-ray reported stable bilateral infiltrates. ASSESSMENT: 1. Acute respiratory failure post influenza with aspiration pneumonia. 2. Underlying dementia with agitation. 3. Parkinson disease. 4. Deconditioning. PLAN OF CARE: 1. The family decided DNR. 2. Discontinue Clinimix, discontinue IV antibiotics. Continue on morphine and lorazepam and scopolamine patch. Basically comfort care, and they will initiate hospice care. We will follow up. LEVEL OF DOCUMENTATION: 25 minutes. cc: Fernando Eric MD
[2018-11-23] MEDS: ATIVAN IV PRN ×6 (02:23→21:47)
[2018-11-23] MEDS: MORPHINE IV PRN ×7 (02:23→21:47)
[2018-11-23] MEDS: NS 1,000 ML IV SCH (02:26)
--- NOTE | 2018-11-23 21:01 | PROGRESS NOTE ---
DATE: 11/23/2018 SUBJECTIVE: The patient is on BiPAP getting IV fluids. Stopped antibiotics and scopolamine patch. Son is at bedside. He is resting well. He is not responding. OBJECTIVE: Vital Signs: On exam, temp is 98 degrees, pulse is 80, blood pressure is stable. HEENT: Exam on the BiPAP machine, decreased rhonchi. ASSESSMENT AND PLAN: 1. Post influenza with bilateral pneumonia. Family decided for comfort care. Waiting for hospice evaluation. 2. Patient is getting Ativan and morphine, and scopolamine patch and Zofran and IV fluids will be discontinued. Family has agreed for comfort care. We will continue to monitor his progress. Living will, DO NOT RESUSCITATE. LEVEL OF DOCUMENTATION: 25 minutes. cc: Fernando Eric MD
[2018-11-24] MEDS: ATIVAN IV PRN ×3 (03:09→09:10)
[2018-11-24] MEDS: MORPHINE IV PRN ×3 (03:10→09:10)
[2018-11-24] MEDS: MORPHINE IV SCH ×3 (11:46→18:49)
[2018-11-24] MEDS: ATIVAN IV SCH ×3 (11:46→18:49)
[2018-11-24 19:51] VITALS: BP 130/41
== END 2018-11-24 18:04 | disposition hospice, inpatient (51) | DRG 189 ==
LOC: SUPCPDRO → ED 19:05 → EDIPHOLD 11-17 01:18 → SUATTDRO 11-17 01:18 → 3N 11-17 02:45
PROVIDERS: ADMIT Internal Medicine; ATTEND Internal Medicine
CPT/HCPCS: 70450; 71010; 71045; 72170; 80048; 80053; 81001; 82550; 82805; 82948; 83735; 83880; 84484; 85025; 87040; 87275; 87276; 87804; 93005; 93010; 93306; 94640; 94660; 94760; 94761; 96365; 96367; 96368; 96372; 97116; 97162; 97530; 99285; A9270; J0610; J1630; J1650; J1940; J2060; J2270; J2543; J3370; J3480; J7030; J7040; J7050; XXXXX

== ENCOUNTER 2018-11-23 09:18 | Inpatient (IN) ==
[2018-11-24] MEDS ORDERED: ZOFRAN IV PRN (20:10)
--- NOTE | 2018-11-24 21:32 | PROGRESS NOTE ---
DATE: 11/24/2018 SUBJECTIVE: The patient is on BiPAP, currently on comfort care. No family is around. OBJECTIVE: On examination, is unresponsive stable. Physical exam no change. ASSESSMENT AND PLAN: Comfort care for underlying Parkinson disease, influenza and bilateral pneumonia. Continue supportive care which includes Ativan, morphine, Zofran, scopolamine patch. CODE STATUS: Living will, Do Not Resuscitate. Waiting for demise. Family is agreeable. LEVEL OF DOCUMENTATION: 15 minutes. cc: Fernando Eric MD
[2018-11-24] MEDS: ATIVAN IV PRN (22:27)
[2018-11-24] MEDS: MORPHINE IV PRN (22:27)
[2018-11-25] MEDS: TRANSDERM-SCOP TD SCH (04:33)
[2018-11-25] MEDS: ATIVAN IV PRN ×8 (04:52→22:24)
[2018-11-25] MEDS: MORPHINE IV PRN ×8 (04:52→22:24)
--- NOTE | 2018-11-25 21:19 | PROGRESS NOTE ---
DATE: 11/25/2018 SUBJECTIVE: The patient is admitted for [facility]. Family was at bedside. He is resting comfortable, off BiPAP. He had a mild abrasion over the nose from the BiPAP machine. EXAMINATION: Vital Signs: Temperature is 97, pulse 79, blood pressure is stable. 2 L nasal cannula 98%. No rales noted, on basically diapers. ASSESSMENT AND PLAN: Influenza A infection, followed by a pneumonia and on n.p.o. Currently on Ativan, morphine, scopolamine patch. DNR, comfort care. Family is agreeable upon waiting for demise. LEVEL OF DOCUMENTATION: 15 minutes. cc: Fernando Eric MD MTDD
[2018-11-26] MEDS: ATIVAN IV PRN ×10 (02:19→22:03)
[2018-11-26] MEDS: MORPHINE IV PRN ×10 (02:19→22:03)
[2018-11-26] MEDS ORDERED: CALMOSEPTINE OINTMENT TOP PRN (14:12)
--- NOTE | 2018-11-26 18:29 | PROGRESS NOTE ---
DATE: 11/26/2018 SUBJECTIVE: The patient's daughter was at bedside. The patient is a [facility] Hospice care. Resting comfortably and is unresponsive. OBJECTIVE: Vital Signs: Temperature is 97 degrees, pulse is 74, blood pressure is stable. 2 L nasal cannula 95%. Physical exam with no change. ASSESSMENT AND PLAN: A [facility] care with hospice with underlying pneumonia, post influenza. Continue present treatment with scopolamine patch, oxygen, lorazepam, and morphine. Living will, DNR. Waiting for demise. cc: Fernando Eric MD
[2018-11-27] MEDS: ATIVAN IV PRN ×11 (00:01→22:09)
[2018-11-27] MEDS: MORPHINE IV PRN ×12 (02:11→22:09)
--- NOTE | 2018-11-27 11:54 | PROGRESS NOTE ---
DATE: 11/27/2018 SUBJECTIVE: Mr. Mancera is an 88-year-old white gentleman admitted with febrile illness. Patient found to have bilateral pneumonia. The patient does have multiple medical problems. Admission history and physical noted. The patient was admitted to hospice for comfort care. Clinically, patient is doing fair. The patient is comfortable, not communicating. OBJECTIVE: Lungs: Decreased air entry, both bases. CVS: S1 and S2 heard. Abdomen: Soft, scaphoid. Bowel sounds present. CHASSIS INSPECTOR: Patient is resting and cooperative for detailed exam. CONSIDERATION: 1. The patient does have multiple medical problems, including bilateral pneumonia, acute respiratory failure, acute kidney injury, history of Parkinson disease, hypertension. 2. Patient is on hospice. We will continue comfort care. The patient's daughter was present and plan discussed. cc: MD Fernando Terrell MD
[2018-11-27] MEDS: TRANSDERM-SCOP TD SCH (19:51)
[2018-11-28] MEDS: ATIVAN IV PRN ×6 (02:04→14:23)
[2018-11-28] MEDS: MORPHINE IV PRN ×6 (02:04→15:49)
--- NOTE | 2018-11-28 11:50 | PROGRESS NOTE ---
DATE: 11/28/2018 SUBJECTIVE: Mr. Mancera is lying in the bed comfortably, not in any pain. Family members were present. OBJECTIVE: Vital signs: Blood pressure 105/46, pulse 78, respirations 16, temperature 97.4 degrees. Skin: Senile turgor. Neck: Supple. No JVD. Eyes: Pupils reacting to light. Lungs: Decreased air entry both the bases. CVS: S1 and S2 heard. Abdomen: Soft, scaphoid. SILVER SOLUTION MIXER: Patient is sleeping, uncooperative for detailed neurologic examination. CONSIDERATION: The patient does have aspiration pneumonia, acute respiratory failure, acute kidney injury, Parkinson's disease, hypertension, dementia. The patient is on comfort care and hospice. We will continue current treatment and close observation. cc: MD Fernando Terrell MD
[2018-11-28] MEDS ORDERED: TRANSDERM-SCOP TD SCH (15:00)
[2018-11-28] MEDS: ATIVAN IV SCH ×8 (15:31→23:36)
[2018-11-28] MEDS: MORPHINE IV SCH ×7 (16:39→23:36)
[2018-11-29] MEDS: ATIVAN IV SCH ×21 (00:43→21:44)
[2018-11-29] MEDS: MORPHINE IV SCH ×25 (00:43→23:59)
--- NOTE | 2018-11-29 21:18 | PROGRESS NOTE ---
DATE: 11/29/2018 SUBJECTIVE: The patient is still in moribund state under GIP. OBJECTIVE: Vital signs: Blood pressure is going down, temperature is 98 degrees, tachycardic, blood pressure 69/34, 5 L nasal cannula 93%. Lungs: Dry and bilateral rhonchi. Cardiovascular: Distant heart sounds. Abdomen: Belly is soft. Genitourinary: He is in diapers. ASSESSMENT AND PLAN: 1. Post influenza aspiration pneumonia. 2. Parkinson disease. Under GIP, waiting for demise, living will, DNR. Continue on Ativan, morphine and scopolamine patch. LEVEL OF DOCUMENTATION: 15 minutes cc: Fernando Eric MD
[2018-11-30] MEDS: ATIVAN IV SCH ×13 (00:01→13:11)
[2018-11-30] MEDS: MORPHINE IV SCH ×13 (03:34→13:11)
[2018-11-30 13:35] VITALS: BP 72/30
[2018-11-30] MEDS ORDERED: ATIVAN PO SCH (14:30)
[2018-11-30] MEDS ORDERED: ROXANOL CONC. LIQUID PO SCH (14:30)
--- NOTE | 2018-12-01 22:21 | DISCHARGE SUMMARY ---
ADMISSION DATE: 11/24/2018 DISCHARGE DATE: 11/30/2018 DATE OF : 11/30/2018 TIME OF : 1425 hours. FINAL DIAGNOSIS: Acute cardiopulmonary arrest due to influenza A infection complicated by aspiration pneumonia. SECONDARY DIAGNOSES: 1. Delirium with agitation. 2. Chronic obstructive pulmonary disease. 3. Parkinson disease. 4. Hypertension. 5. Dehydration with acute kidney injury. BRIEF HISTORY: Please see the H and P that was done on 11/16/[address] Troncoso. In brief, he is an 88-year-old white gentleman with above problems, living in assisted living at [facility], was brought in with a fever, positive for flu associated with pneumonia. He was found to have hyponatremic dehydration, and also acute kidney injury due to intravolume dehydration. HOSPITAL COURSE FOLLOWS: 1. Patient was given oxygen, bronchial toilet, IV antibiotics with vancomycin and Zosyn. The patient also was treated with a Tamiflu. 2. The patient was given IV fluids for dehydration. 3. The patient was agitated requiring restraints and Ativan. 4. The patient was not emptying the bladder. Morris was difficult to place and Dr. Hope was consulted. 5. While he was getting better, in terms of the dehydration and azotemia, patient continues to have significant declining of respiratory status. He is requiring BiPAP machine and, also, restraints. The patient does have living will, DNR. The caregiver son was at bedside. He was very combative requiring Ativan and he pulled the IV out as well as a Morrsi catheter. The situation seems to be worsening. Family decided that they want to discontinue all the treatment, which includes IV fluids IV antibiotics, and BiPAP machine. 6. And at that point the care was transferred on 11/24/2018 for [facility] under [facility]. 7. The clinical course from 11/26 to 11/30/2018, patient was in moribund state. Patient was given oxygen as needed. Scopolamine patch, lorazepam, and morphine, and slowly his situation deteriorated and peacefully on 11/30/2018 at 1425 hours. Family was at bedside. The cause of the was due to acute respiratory failure due to influenza A infection complicated by pneumonia, presumed to be aspiration with comorbid conditions as above. cc: Fernando Eric MD
== END 2018-11-30 14:25 | disposition expired | DRG 193 ==
LOC: 3N 09:18
PROVIDERS: ADMIT Internal Medicine; ATTEND Internal Medicine
CPT/HCPCS: 94761; A9270; J2060; J2270